=== PATIENT | male | born 1960 | race Caucasian/White ===

== ENCOUNTER → 2023-05-01 11:16 | Outpatient (REF) | payer OTHER, SELFPAY | LOC: HWRAD 11:16 | PROVIDERS: ATTENDING PHYSICIAN Physician Assistant Medical | DX: R05.1 Acute cough (principal); Z11.52 Encounter for screening for COVID-19 | CPT/HCPCS: 71046 ==

== ENCOUNTER → 2023-06-28 10:34 | Emergency (ER) | payer OTHER, SELFPAY ==
[2023-06-28] VITALS (13 sets, daily range): BP systolic 113–139; BP diastolic 79–99; BMI 26.7
--- NOTE | 2023-06-28 11:26 | ED.GENMED ---
History of Present Illness
General
Chief Complaint: Abnormal Lab Value
Time Seen by Provider: 06/28/23 11:26
Travel History
Have you had any contact with someone who has COVID-19?: No
Do you have any symptoms of coronavirus? Fever > 100 degrees, chills, cough, shortness of breath, sore throat, loss of taste or smell, muscle aches, or headache?: No
History of Present Illness
History of Present Illness:
HPI: The patient presents due to concerns of low hemoglobin. The hemoglobin was checked as an outpatient yesterday and was found to be 7.2. He started Celebrex 6 months ago due to back/hip related issues. Several years ago, he had a similar
episode when he had a hemoglobin in the 6 range and was on iron at that time. He had a GI workup and he reports an unremarkable endoscopy and was referred to [facility] for what sounds like video capsule endoscopy which showed some questionable
abnormality at that time. He reports no dark stool. While walking in [place], he had to sit down and rest because he was so weak. He says that his hemoglobin was 15 6 months ago.
EXAM:
GENERAL: Well appearing in no distress
HEENT: Moist oral mucosa
CARDIOVASCULAR: No murmurs, normal heart rate, regular rhythm, No chest wall tenderness
PULMONARY: No respiratory distress, breath sounds are clear and equal
ABDOMEN: Soft with no peritoneal signs, no tenderness, heme-negative brown stool
NEUROLOGIC: Excellent strength all extremities, no coordination deficits
PSYCHIATRIC: Appropriate mental status, normal insight and judgement
EXTREMITIES: Nontender, no edema, moves all extremities equally
SKIN: He does not appear particularly pale
TIME OF INITIAL ENCOUNTER: 11:30 AM
NUMBER AND COMPLEXITY OF PROBLEMS ADDRESSED AT THE ENCOUNTER
� Chronic conditions affecting care: Has had anemia in the past
� Acute Exacerbation and/or Progression of Chronic Illness: This is an acute problem but has had a similar presentation in the past
� Differential Diagnosis includes: Upper GI bleed, iron deficiency anemia
AMOUNT AND/OR COMPLEXITY OF DATA TO BE REVIEWED AND ANALYZED
� I performed an independent evaluation of and my interpretation is:
EKG:
CT:
X-rays:
Laboratory Studies: I reviewed records. On 08/17/2015 his hemoglobin 6.7, he was discharged 2 days later with a hemoglobin of 8.3. In 2017 his hemoglobin was 11.6
Other:
� Review of other/old records: I reviewed old hemoglobin levels as well as GI notes from the past indicating normal endoscopy and colonoscopy
� Clinical information was obtained by an independent historian: Spoke to at bedside
� Prescriptions/Medications Considered but not given:
� Further testing considered but not performed:
RISK OF COMPLICATIONS AND/OR MORBIDITY OR MORTALITY OF PATIENT MANAGEMENT
� Social determinants of health affecting care: Lives at home
� Discussion with other providers: Discussed case with Dr. De La Rosa -she can see him tomorrow at noon. She also recommended IV iron and agrees with giving a unit of blood.
� Escalation of care including admission/observation vs risk of discharge considered: No clear obvious source of anemia at this time�BUN is normal and heme-negative brown stool. Blood transfusion and IV iron while in ED. the
patient has remained well-appearing while in the ED.
Past History
Past History
ED Past Medical History: None
ED Past Surgical History: None
Social History
Tobacco: Smoker
Alcohol: Occasional
Personal:
Living: with family
Phy Exam
Physical Exam
Physical Exam:
See HPI
Course
Orders/Labs/Results
Orders:
Orders
06/28/23 11:47
Type+Screen Urgent
B12 [Vitamin B12] Urgent
Complete Blood Count/With Diff Urgent
Comprehensive Metabolic Panel Urgent
Ferritin Urgent
Iron Urgent
Total Iron Binding Urgent
06/28/23 12:14
* Blood Bank Products Urgent
Blood Bank Products: *Packed RBC Leuko(PRBC's)
Quantity: 1
Transfuse Today: Yes
Reason: Anemia
06/28/23 13:11
Ferric Gluconate [Ferrlecit] 125 mg 0.9% Sodium Chloride 100 ml [Nss] 100 ml IV NOW
Abnormal Lab Results
06/28/23
11:47
RBC 3.23 L 10^6/uL
(4.70-6.10)
Hgb 7.5 L g/dL
(13.0-18.0)
Hct 24.7 L %
(39.0-52.0)
MCV 76.5 L fL
(80.0-94.0)
MCH 23.2 L pg
(27.0-31.0)
MCHC 30.4 L g/dL
(33.0-37.0)
RDW 14.6 H %
(11.5-14.5)
Absolute Monos (auto) 0.8 H 10^3/uL
(0.1-0.6)
Immature Gran % 0.6 H %
(0-0.5)
Lymphocytes % 20.4 L %
(20.5-51.1)
Monocytes % 12.7 H %
(1.7-9.3)
Sodium 133 L mmol/L
(135-145)
Glucose 100 H mg/dl
(70-99)
Iron 22 L ug/dl
(49-181)
% Saturation 5 L %
(20-50)
Ferritin 5.7 L ng/ml
(17.9-464.0)
Crossmatch IS Only See Detail
06/28/23 11:47
06/28/23 11:47
Vital Signs
Initial and Last Documented VS:
Initial Vital Signs
Temp Pulse Resp BP Pulse Ox
98.4 F 94 18 135/82 97
06/28/23 10:40 06/28/23 10:40 06/28/23 10:40 06/28/23 10:40 06/28/23 10:40
Last Documented Vital Signs
Temp Pulse Resp BP Pulse Ox
98.4 F 94 18 130/83 99
06/28/23 10:40 06/28/23 10:40 06/28/23 10:40 06/28/23 12:00 06/28/23 12:45
*Critical Care Note
Total Time (30-74mins, 75-104mins- exclusive of procedures): Not Applicable
ED Attending Note
-
Portions of this chart may have been created with voice recognition software.� Occasional wrong word or��sound alike� substitutions may have occurred due to the inherent limitations of voice recognition software.
Discharge Plan
Departure
Patient Disposition: Home (Routine Discharge)
Date of Disposition: 06/28/23
Time of Disposition: 13:14
Patient with high blood pressure during this ER visit?: Yes
Discharge Problem:
Anemia
Prescriptions:
No Action
celecoxib 200 mg Capsule
200 mg PO QPMPRN PRN (Reason: mild pain)
lisinopril 20 mg Tablet
20 mg PO DAILY
clobetasol 0.05 % Gel
1 applic TOPICAL DAILY PRN (Reason: scalp)
ibuprofen [Advil] 200 mg Tablet
400 mg PO BIDPRN PRN (Reason: mild pain)
azelastine 137 mcg (0.1 %) Aerosol,[place]
1 spray INTRANASAL BID
fluticasone propionate 50 mcg/actuation [place],Suspension
1 spray INTRANASAL HS
Referrals:
Barb De La Rosa MD [Active] - Tomorrow
Dre Lozano PA-C [Family Provider] -
Jeremie Patel MD [Active] - Follow up in 1 week
Activity Restrictions/Additional Instructions:
I spoke to Dr. Barb Do -follow-up with her tomorrow at noon at the [facility] in [place]. 200. Your hemoglobin today was 7.5. Vitamin B12 level is normal. Iron levels are low. We did order IV iron as well. I also recommend that you follow-up with
hematology as they may continue IV iron infusions as an outpatient.
Interventions
Interventions:
*Risk Screen - Suicide Last Done: 06/28/23 10:40
*General Assessment Last Done: 06/28/23 10:40
*Neglect/Abuse Screening Last Done: 06/28/23 10:40
ED- Fall Risk Assessment Last Done: 06/28/23 12:57
*ED COVID-19 Vaccine History Last Done: 06/28/23 10:40
Discharge Date and Time
Print Language: DIVEHI
[2023-06-28 12:01] LABS: % Basophils 1.1 % (0-2); % Eosinophils 0.9 % (0-6); % Immature Granulocytes 0.6 % (0-0.5); % Lymphocytes 20.4 % (20.5-51.1); % Monocytes 12.7 % (1.7-9.3); % Neutrophils 64.3 % (42.2-75.2); Absolute Basophils 0.1 10^3/uL (0-0.2); Absolute Eosinophils 0.1 10^3/uL (0-0.7); Absolute Lymphocytes 1.3 10^3/uL (1.2-3.4); Absolute Monocytes 0.8 10^3/uL (0.1-0.6); Absolute Neutrophils 4.2 10^3/uL (1.4-6.5); Hematocrit 24.7 % (39.0-52.0); Hemoglobin 7.5 g/dL (13.0-18.0); Mean Corp Hgb Conc. 30.4 g/dL (33.0-37.0); Mean Corpuscular Hgb 23.2 pg (27.0-31.0); Mean Corpuscular Volume 76.5 fL (80.0-94.0); Mean Platelet Volume 9.3 fL (7.4-10.4); Nucleated Red Blood Cells % 0 % (-); Platelet Count 352 10^3/uL (130-400); Red Blood Cell Count 3.23 10^6/uL (4.70-6.10); Red Cell Dist. Width 14.6 % (11.5-14.5); White Blood Cell Count 6.5 10^3/uL (4.8-10.8)
[2023-06-28 12:10] LABS: ALT (SGPT) 22 U/L (0-50); AST (SGOT) 24 U/L (17-59); Albumin 4.8 g/dl (3.5-5.0); Alkaline Phosphatase 87 U/L (38-126); Blood Urea Nitrogen 15 mg/dl (9-20); Calcium 9.4 mg/dl (8.4-10.2); Carbon Dioxide 24 mmol/L (22-30); Chloride 101 mmol/L (98-107); Glucose 100 mg/dl (70-99); Iron 22 ug/dl (49-181); Potassium 4.5 mmol/L (3.5-5.1); Sodium 133 mmol/L (135-145); Total Bilirubin 0.4 mg/dl (0.2-1.3); Total Protein 7.9 g/dl (6.3-8.2); eGFR > 60.00
[2023-06-28 12:19] LABS: Percent Saturation 5 % (20-50); Total Iron Binding Capacity 428 ug/dl (261-462)
[2023-06-28 12:52] LABS: Ferritin 5.7 ng/ml (17.9-464.0)
[2023-06-28 13:06] LABS: Vitamin B12 309 pg/ml (239-931)
[2023-06-28] MEDS: FERRLECIT 110 MG IV (13:57)
== END | disposition home or self-care (01) ==
LOC: EMR 10:34
PROVIDERS: EMERGENCY PHYSICIAN Emergency Medicine; FAMILY PHYSICIAN Physician Assistant Medical
DX: D64.9 Anemia, unspecified (principal); F17.200 Nicotine dependence, unspecified, uncomplicated; R03.0 Elevated blood-pressure reading, without diagnosis of hypertension
CPT/HCPCS: 99285; 36430; 96374; 80053; 82607; 82728; 83540; 83550; 85025; 86850; 86900; 86901; 86920; J2916; P9016

== ENCOUNTER → 2023-07-19 06:27 | Day surgery (SDC) | payer OTHER, SELFPAY | LOC: GI 06:27 | PROVIDERS: ATTENDING PHYSICIAN Internal Medicine Gastroenterology | DX: K57.30 Diverticulosis of large intestine without perforation or abscess without bleeding (principal); K62.1 Rectal polyp; K64.8 Other hemorrhoids; K64.4 Residual hemorrhoidal skin tags; D50.9 Iron deficiency anemia, unspecified; K31.89 Other diseases of stomach and duodenum | CPT/HCPCS: 45380; 43239; 88305; 88342 ==

== ENCOUNTER 2023-08-18 08:59 | Outpatient (RCR) | payer OTHER, SELFPAY ==
[2023-08-11 09:15] VITALS: BP 145/75
[2023-08-11] MEDS: VENOFER 110 MG IV (09:33)
[2023-08-11 10:34] VITALS: BP 109/74
[2023-08-18 09:15] VITALS: BP 132/74
[2023-08-18] MEDS: VENOFER 110 MG IV (09:19)
[2023-08-18 10:24] VITALS: BP 107/78
== END 2023-08-18 14:34 | disposition home or self-care (01) ==
LOC: OID 08:59
PROVIDERS: ATTENDING PHYSICIAN Nurse Practitioner Family; FAMILY PHYSICIAN Nurse Practitioner
DX: D50.9 Iron deficiency anemia, unspecified (principal); D50.8 Other iron deficiency anemias
CPT/HCPCS: 96365; J1756

== ENCOUNTER 2023-09-08 09:07 | Outpatient (RCR) | payer OTHER, SELFPAY ==
[2023-08-28 10:05] VITALS: BP 128/70
[2023-08-28] MEDS: VENOFER 110 MG IV (10:18)
[2023-08-28 11:33] VITALS: BP 129/79
[2023-09-01 09:25] VITALS: BP 128/65
[2023-09-01] MEDS: VENOFER 110 MG IV (09:42)
[2023-09-01 10:30] VITALS: BP 119/67
[2023-09-08] MEDS: VENOFER 110 MG IV (09:46)
[2023-09-08 09:57] VITALS: BP 123/72
[2023-09-08 11:00] VITALS: BP 127/74
== END 2023-09-11 08:37 | disposition home or self-care (01) ==
LOC: OID 09:07
PROVIDERS: ATTENDING PHYSICIAN Nurse Practitioner Family; FAMILY PHYSICIAN Nurse Practitioner
DX: D50.9 Iron deficiency anemia, unspecified (principal); D50.8 Other iron deficiency anemias; E53.8 Deficiency of other specified B group vitamins
CPT/HCPCS: 96365; J1756

== ENCOUNTER 2024-03-25 11:16 | Emergency (ER) | payer OTHER, MEDICARE, SELFPAY ==
[2024-03-25 11:38] VITALS: BP 155/89
--- NOTE | 2024-03-25 13:10 | ED.GENMED ---
History of Present Illness
General
Chief Complaint: Musculo-Skeletal Complaint
Time Seen by Provider: 03/25/24 12:45
History of Present Illness
History of Present Illness:
Patient is a 64-year-old man presenting to the emergency room with wrist pain and hip pain. Patient states that he slipped on ice while he was walking his dog. He did not hit his head or lose consciousness. He is not on a blood thinner. He
landed on his outstretched left wrist and his left hip. He was able to ambulate. He is having significant pain to his left wrist and left hip. No numbness tingling. No weakness.
Past History
Past History
ED Past Medical History: None
ED Past Surgical History: None
Social History
Tobacco: Smoker
Alcohol: Occasional
Personal:
Living: with family
Phy Exam
Physical Exam
Physical Exam:
GENERAL: no acute distress
HEENT: atraumatic, extraocular muscles intact, no signs of entrapmen
NECK: no midline tenderness, normal range of motion
BACK: no midline tenderness, no other obvious trauma
CHEST: no tendernes
LUNGS: clear to auscultation bilaterally
CARDIOVASCULAR: regular rate and rhythm
ABDOMEN: soft, non-tender, no masses, no other obvious trauma
PELVIS: stable, no obvious injury
EXTREMITIES: moving all extremities, distal pulses intact, no other obvious trauma, tenderness over the dorsal left wrist as well as left hip. Neurovascularly intact
NEUROLOGIC: awake, alert x 3, no focal deficits
Course
Orders/Labs/Results
Orders:
Orders
03/25/24 11:41
CR Wrist - Left Min 3 Views Urgent
Comment:
Reason For Exam: fall, pain
03/25/24 12:59
Splints/Slings/Crut- Treatment ONCE
Oxycodone/Acetaminophen [Percocet 5/325] 1 tablet PO NOW STA
CR Hip - LT w/wo Pel 2-3 Vw* Urgent
Comment:
Reason For Exam: hip pain
Include a pelvis x-ray?: Yes
Vital Signs
Initial and Last Documented VS:
Initial Vital Signs
Temp Pulse Resp BP Pulse Ox
98.3 F 95 18 155/89 99
03/25/24 11:38 03/25/24 11:38 03/25/24 11:38 03/25/24 11:38 03/25/24 11:38
Last Documented Vital Signs
Temp Pulse Resp BP Pulse Ox
98.3 F 95 18 155/89 99
03/25/24 11:38 03/25/24 11:38 03/25/24 11:38 03/25/24 11:38 03/25/24 11:38
MDM/Problems Addressed
Differential Diagnosis Includes:
Patient is a 64-year-old man presenting to the emergency department left wrist and left hip pain. Vitals are unremarkable and exam does show tenderness over the left wrist and hip. Concern for fracture. X-ray of the wrist obtained prior to my
evaluation is consistent with a triquetrum fracture. Will place patient in a volar splint. Will also obtain x-ray of the hip. Will pain control.
*Critical Care Note
Total Time (30-74mins, 75-104mins- exclusive of procedures): Not Applicable
Update Note
Update Note:
On reevaluation patient resting comfortably. X-ray per my interpretation with no obvious fracture. Patient is ambulatory. He is requesting discharge. I did update patient that we do not have the official read just yet. However given that
patient is ambulatory we will discharge. Strict return precautions given.
ED Attending Note
-
Portions of this chart may have been created with voice recognition software.� Occasional wrong word or��sound alike� substitutions may have occurred due to the inherent limitations of voice recognition software.
Discharge Plan
Departure
Patient Disposition: Home (Routine Discharge)
Date of Disposition: 03/25/24
Time of Disposition: 15:03
Patient with high blood pressure during this ER visit?: Yes
Discharge Problem:
Fracture of triquetrum, Acute hip pain
Instructions: Wrist Fracture (DC)
Prescriptions:
New
oxycodone 5 mg tablet
5 mg PO Q6H PRN (Reason: Pain) Qty: 7 0RF
No Action
lisinopril 20 mg Tablet
20 mg PO DAILY
azelastine 137 mcg (0.1 %) Aerosol,[place]
2 spray INTRANASAL BID PRN (Reason: alergies)
Iron (ferrous sulfate)
1 tab PO DAILY
fluticasone propionate [Flonase] 50 mcg/actuation [place],Suspension
1 spray INTRANASAL DAILY
Referrals:
Adis Roman MD [Active] -
Activity Restrictions/Additional Instructions:
Please follow-up with your orthopedic surgeon for your fracture as well as your hip pain.
We discussed pain medications:
You may take Tylenol (also known as Acetaminophen) for pain.
You may take 1000mg Acetaminophen (two extra-strength tablets) per dose, which should be taken every 6-8 hours, or three times a day.
If you have normal strength Tylenol, you can take 650mg (two normal strength tablets) every 4-6 hours.
Do not take more than 3,000mg (3 grams) of Acetaminophen per day.
Never take more than as directed on the bottle.
You may use Oxycodone for severe or breakthrough pain. This medication can cause constipation and drowsiness. Do not drive or make important decisions while taking it. Consider using a laxative such as Senna while taking this medication.
Please see your primary care doctor soon to be reevaluated and to make sure that you are improving. We have included information about establishing care with a doctor if you do not have one.
We talked about your evaluation, diagnosis, and treatment in the Emergency Department today. You must see your primary doctor for recheck and followup care in order to evaluate your progress or any changes. Have your doctor recheck the test
results/information from the ED visit. As discussed, RETURN to the ED if you develop worsening/changing symptoms or have no improvement in symptoms after the treatments provided.
Interventions
Interventions:
*Risk Screen - Suicide Last Done: 03/25/24 11:38
*General Assessment Last Done: 03/25/24 11:38
*ED COVID-19 Vaccine History Last Done: 03/25/24 14:40
ED-Musculoskeletal Assessment Last Done: 03/25/24 14:40
Discharge Date and Time
Print Language: AUSTRAL[place]
[2024-03-25] MEDS: PERCOCET 5/325 1 TABLET PO (14:01)
[2024-03-25 15:57] VITALS: BP 150/88
== END 2024-03-25 15:58 | disposition home or self-care (01) ==
LOC: EMR 11:16
PROVIDERS: EMERGENCY PHYSICIAN Student in an Organized Health Care Education/Training Program
DX: S62.112A Displaced fracture of triquetrum [cuneiform] bone, left wrist, initial encounter for closed fracture (principal); M25.552 Pain in left hip; W00.0XXA Fall on same level due to ice and snow, initial encounter; Y93.01 Activity, walking, marching and hiking; F17.200 Nicotine dependence, unspecified, uncomplicated
CPT/HCPCS: 99283; 73110; 73502

== ENCOUNTER → 2024-06-10 14:31 | Outpatient (REF) | payer MEDICARE, OTHER, SELFPAY | LOC: RCS 14:31 | PROVIDERS: ATTENDING PHYSICIAN Nurse Practitioner | DX: I35.1 Nonrheumatic aortic (valve) insufficiency (principal); I36.1 Nonrheumatic tricuspid (valve) insufficiency | CPT/HCPCS: 93306 ==